=== PATIENT | female | born 1985 | race Caucasian/White ===

== ENCOUNTER 2023-05-11 23:58 | Emergency (ER) | payer BC, OTHER ==
[~2023-05-11] VITALS: Ht 165.1 cm; Wt 54.4 kg
[2023-05-12 00:17] VITALS: BP 130/84; TEMP 98.1; O2SAT 98
[2023-05-12] MEDS ORDERED: TDAP [DIPH/PERTUSSIS/TET] 0.5 ML VIAL IM ONE ×2 (00:30→00:41)
[2023-05-12] MEDS ORDERED: LIDOCAINE /MPF 1% VIAL 5 ML VIAL ONE (00:41)
== END 2023-05-12 01:23 | disposition home or self-care (01) ==
LOC: ER 05-12
DX: S01.81XA Laceration without foreign body of other part of head, initial encounter (principal); W01.0XXA Fall on same level from slipping, tripping and stumbling without subsequent striking against object, initial encounter; Y93.02 Activity, running; Y92.89 Other specified places as the place of occurrence of the external cause; Y99.8 Other external cause status
CPT/HCPCS: 12011; 90471; 90715; 99283; J3490